=== PATIENT | female | born 1945 | race Caucasian/White ===

== ENCOUNTER 2017-01-16 10:02 | Inpatient (IN) | payer MEDICARE ==
[~2017-01-16] VITALS: Ht 170.2 cm; Wt 89.9 kg
[2017-01-16] MEDS ORDERED: DABI150C PO (10:34)
[2017-01-16] MEDS ORDERED: DRON400T PO (10:34)
[2017-01-16] MEDS ORDERED: HYDR12.53 PO (10:34)
[2017-01-16] MEDS ORDERED: ESTR0.5T3 PO (10:34)
[2017-01-16] MEDS ORDERED: SODIUM CHLORIDE 0.9% 1,000 ML IV ONE (11:10)
[2017-01-16 11:29] LABS: HEMOGLOBIN 16.9 g/dL (11.7-16.4)
[2017-01-16 11:41] LABS: ASPARTATE AMINO TRANSFERASE 14 U/L (15-37); BLOOD UREA NITROGEN 15 mg/dL (7-18)
[2017-01-16 11:47] LABS: IS PT STATUS REG ER OR PRE ER? YES
[2017-01-16] MEDS ORDERED: OMNIPAQUE 350 MG/ML, 100ML BOTTLE ONE (11:58)
[2017-01-16] MEDS ORDERED: ONDANSETRON 2MG/ML, 2ML IVP PRN (14:00)
[2017-01-16] MEDS ORDERED: ACETAMINOPHEN 325 MG TABLET PO PRN (14:00)
[2017-01-16] MEDS ORDERED: HYDROcodone/APAP 5/325 TABLET PO PRN (14:00)
[2017-01-16] MEDS ORDERED: MORPHINE SULFATE 4 MG/ML, 1ML IVPush PRN (14:00)
[2017-01-16] MEDS ORDERED: DOCUSATE 100 MG CAPSULE PO PRN (14:00)
[2017-01-16] MEDS ORDERED: POLYETHYLENE GLYCOL 17 GM PACKET PO PRN (14:00)
[2017-01-16] MEDS ORDERED: [UNRECOGNIZED DRUG - REMARK] MC SCH (14:30)
[2017-01-16 14:34] VITALS: BP 148/83
[2017-01-16] MEDS: SODIUM CHLORIDE 0.9% 1,000 ML IV SCH ×2 (15:26→23:06)
[2017-01-16] MEDS ORDERED: TEMAZEPAM 15 MG CAPSULE PO PRN (16:00)
[2017-01-16 19:44] VITALS: BP 128/74
[2017-01-16] MEDS: DABIGATRAN 150 MG CAPSULE PO SCH (20:31)
[2017-01-16] MEDS: DRONEDARONE 400MG TABLET PO SCH (20:31)
[2017-01-17 02:00] VITALS: BP 140/74
[2017-01-17 05:26] LABS: HEMOGLOBIN 13.9 g/dL (11.7-16.4)
[2017-01-17 05:37] LABS: BLOOD UREA NITROGEN 14 mg/dL (7-18)
[2017-01-17 08:24] VITALS: BP 162/80
[2017-01-17] MEDS ORDERED: HYDROCHLOROTHIAZIDE 12.5 MG CAPSULE PO SCH (09:00)
[2017-01-17] MEDS ORDERED: SENNA/DOCUSATE TABLET PO SCH (09:00)
[2017-01-17] MEDS ORDERED: HYDROXYUREA 500 MG CAPSULE PO SCH (09:00)
[2017-01-17] MEDS: DRONEDARONE 400MG TABLET PO SCH (09:03)
[2017-01-17] MEDS: DABIGATRAN 150 MG CAPSULE PO SCH (09:03)
[2017-01-17] MEDS ORDERED: HYDR500C3 PO (10:59)
[2017-01-20] MEDS ORDERED: ESTRADIOL 0.5 MG TABLET PO SCH (09:00)
[2017-01-22] MEDS ORDERED: ESTRADIOL 0.5 MG TABLET PO SCH (09:00)
== END 2017-01-17 13:28 | disposition home or self-care (01) | DRG 69 ==
LOC: ED 12:23 → EDIP 12:33 → 4EST 14:22
PROVIDERS: ADMIT Internal Medicine; ATTEND Family Medicine
PROC: 0T9B30Z Drainage of Bladder with Drainage Device, Percutaneous Approach (ICD-10-PCS; principal; 2017-01-16)
DX: G45.9 Transient cerebral ischemic attack, unspecified (principal); D68.59 Other primary thrombophilia; D75.89 Other specified diseases of blood and blood-forming organs; D45 Polycythemia vera; D47.3 Essential (hemorrhagic) thrombocythemia; E78.00 Pure hypercholesterolemia, unspecified; I10 Essential (primary) hypertension; E78.5 Hyperlipidemia, unspecified; I48.2 Chronic atrial fibrillation; Z80.9 Family history of malignant neoplasm, unspecified; Z82.49 Family history of ischemic heart disease and other diseases of the circulatory system; Z83.3 Family history of diabetes mellitus; Z90.49 Acquired absence of other specified parts of digestive tract; Z79.01 Long term (current) use of anticoagulants; Z90.710 Acquired absence of both cervix and uterus
CPT/HCPCS: 36415; 70450; 70496; 70498; 70551; 71010; 80047; 80048; 80053; 81003; 82962; 84484; 85025; 85610; 85730; 93005; 93306; 99195; 99291; Q9967; 92523-GN; J7030

== ENCOUNTER 2017-02-26 20:58 | Emergency (ER) | payer MEDICARE ==
[~2017-02-26] VITALS: Ht 170.2 cm; Wt 92.1 kg
[~2017-02-26 20:58] MED LIST: DABI150C PO; DRON400T PO; ESTR0.5T3 PO; HYDR12.53 PO; HYDR500C3 PO
[2017-02-26] MEDS ORDERED: SODIUM CHLORIDE 0.9% 1,000 ML IV ONE (21:21)
[2017-02-26] MEDS ORDERED: NITROGLYCERIN OINT 2%, 1GM TP ONE ×2 (21:30→22:27)
[2017-02-26] MEDS ORDERED: SODIUM CHLORIDE FLUSH 10ML SYR IVF ONE (21:30)
[2017-02-26] MEDS ORDERED: ASPIRIN 81 MG TABLET CHEW PO ONE (21:30)
[2017-02-26 22:04] LABS: ASPARTATE AMINO TRANSFERASE 14 U/L (15-37); BLOOD UREA NITROGEN 16 mg/dL (7-18)
[2017-02-26 22:09] LABS: IS PT STATUS REG ER OR PRE ER? YES
[2017-02-26] MEDS ORDERED: ASPIRIN 81 MG TABLET CHEW ONE (22:28)
[2017-02-26 23:53] VITALS: BP 135/70
== END 2017-02-26 23:55 | disposition left against medical advice (07) ==
LOC: ED 23:05 → SUATTDRO 23:12 → ED 23:55
DX: I16.9 Hypertensive crisis, unspecified (principal); R07.2 Precordial pain; I48.91 Unspecified atrial fibrillation; Z86.73 Personal history of transient ischemic attack (TIA), and cerebral infarction without residual deficits; Z86.2 Personal history of diseases of the blood and blood-forming organs and certain disorders involving the immune mechanism
CPT/HCPCS: 36415; 71010; 80053; 83880; 84484; 85025; 85610; 85730; 93005; 96360; 99285; J7030

== ENCOUNTER → 2017-12-01 | Outpatient (CLI) | payer MEDICARE | END | disposition home or self-care (01) | LOC: CFH 09:06 | PROVIDERS: ATTEND Nurse Practitioner Family | DX: Z12.31 Encounter for screening mammogram for malignant neoplasm of breast (principal) | CPT/HCPCS: 77063; 77067 ==

== ENCOUNTER 2019-01-10 17:16 | Inpatient (IN) | payer MEDICARE ==
[~2019-01-10] VITALS: Ht 170.2 cm; Wt 98.5 kg
[~2019-01-10 17:16] MED LIST changes: +HYDR12.517 PO; -HYDR12.53 PO
--- NOTE | 2019-01-10 18:06 | NUR ---
pt presents to ED with c/o generalized weakness x 5 days, states she was diagnosed with UTI 5 days ago and given keflex rx. pt has been compliant with this prescription. pt a&ox4, resps even and unlabored, neuro intact. 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 all monitors in place. call light in reach. ERP Ann at bedside to assess.
[2019-01-10 18:34] LABS: BASOPHILS # (AUTO) 0.03 x10^3/uL (0-0.1); BASOPHILS % (AUTO) 0 % (0-1); EOSINOPHILS % (AUTO) 0 % (1-7); LYMPHOCYTES % (AUTO) 7 % (22-44); MD NO; MEAN CORPUSCULAR HEMOGLOBIN 36.7 pg (27.0-34.8); MEAN CORPUSCULAR HGB CONC 35.1 g/dL (32.4-35.8); MEAN CORPUSCULAR VOLUME 104.3 fL (80-100); MEAN PLATELET VOLUME 6.5 fL (7.4-10.4); MONOCYTES # (AUTO) 0.61 x10^3/uL (0.2-0.8); MONOCYTES % (AUTO) 5 % (2-9); NEUTROPHILS # (AUTO) 11.09 x10^3/uL (1.8-6.8); NEUTROPHILS % (AUTO) 88 % (42-75); PLATELET COUNT 545 x10^3/uL (130-400); RED BLOOD COUNT 4.29 x10^6/uL (3.82-5.3); RED CELL DISTRIBUTION WIDTH 13.3 % (9.6-15.2)
[2019-01-10 18:40] LABS: INTERNATIONAL NORMALIZED RATIO 1.22 (0.93-1.1); PROTHROMBIN TIME 12.7 Seconds (9.6-11.5)
[2019-01-10 18:42] LABS: ALANINE AMINOTRANSFERASE 29 U/L (12-78); ANION GAP 11 mmol/L (5-15); CALCIUM 8.7 mg/dL (8.5-10.1); CHLORIDE 79 mmol/L (98-107); CREATININE 0.78 mg/dL (0.55-1.02)
[2019-01-10 18:46] LABS: ALKALINE PHOSPHATASE 67 U/L (45-117); BILIRUBIN,TOTAL 1.5 mg/dL (0.2-1.0); TOTAL PROTEIN 7.3 g/dL (6.4-8.2); TROPONIN I < 0.015 ng/mL (0.000-0.045)
[2019-01-10 18:46] LABS: CULTURE INDICATED? YES; MICROSCOPIC INDICATED
[2019-01-10] MEDS ORDERED: SODIUM CHLORIDE 0.9% 1,000 ML IV ONE (18:57)
--- NOTE | 2019-01-10 19:06 | NUR ---
ERP Grausz aware NA level 114, pt to have IV and NS infusion.
--- NOTE | 2019-01-10 19:15 | NUR ---
report given to camcaho Corcoran.
--- NOTE | 2019-01-10 19:34 | NUR ---
Break RN: IV placed. IVF jerri. Hospitalist ( Dr. Kim ) at bedside.
[2019-01-10] MEDS ORDERED: METO25TA91 PO (19:53)
[2019-01-10] MEDS ORDERED: METO-282 PO (19:53)
[2019-01-10] MEDS ORDERED: CEPH-368 PO (19:53)
[2019-01-10] MEDS ORDERED: TRIA1TAB3 PO (19:53)
--- NOTE | 2019-01-10 19:58 | NUR ---
report received from ARIELLE Corcoran. this RN assuming care again.
[2019-01-10] MEDS ORDERED: HEPARIN 5,000 UNITS/ML, 1ML SQ SCH (20:00)
[2019-01-10] MEDS ORDERED: ONDANSETRON 2MG/ML, 2ML IVPush PRN (20:00)
[2019-01-10] MEDS ORDERED: SODIUM CHLORIDE 3% 500 ML IV PRN (20:00)
[2019-01-10] MEDS ORDERED: LABETALOL 5MG/ML, 20ML IVPush PRN (20:00)
[2019-01-10] MEDS ORDERED: ACETAMINOPHEN 325 MG TABLET PO PRN (20:00)
--- NOTE | 2019-01-10 20:15 | NUR ---
order received for IV rocephin, hospitalist called to see if blood cx are indicated prior to infusion. no answer, no message service available. this RN will attempt to call again shortly.
--- NOTE | 2019-01-10 20:17 | NUR ---
MD Kim reached, per MD, no blood cx indicated prior to IV abx as pt has been on outpatient anbiotic therapy for past several days.
[2019-01-10] MEDS ORDERED: CEFTRIAXONE PMX 1GM/50ML 50 ML ONE (20:20)
[2019-01-10 20:28] LABS: ANION GAP 11 mmol/L (5-15); CALCIUM 8.8 mg/dL (8.5-10.1); CHLORIDE 80 mmol/L (98-107); CREATININE 0.69 mg/dL (0.55-1.02)
[2019-01-10] MEDS: CEFTRIAXONE PMX 1GM/50ML 50 ML IV SCH (20:28)
--- NOTE | 2019-01-10 20:40 | NUR ---
NS infusion of 75ml/hr started by ARIELLE Corcoran stopped. Hypertonic saline infusion at 40mL/hr initiated per pharmacy, per pharmacy, this may be infused through a peripheral IV. Infusion infusing via pump, rate and dose verified by second RN Mayela. Pt is a&ox 4, neuro intact. 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 pupils equal, round and reactive. second PIV placed by this RN for hypertonic saline infusion. pt tolerating well. nsr on monitor technician, no ectopy, vss.
--- NOTE | 2019-01-10 20:46 | NUR ---
report given to ARIELLE Camacho, pt awaiting transport to room 551.
--- NOTE | 2019-01-10 21:02 | NUR ---
pt transported by this RN and tech to CCU. nadn at transport. MD Kim notified repeat Na level is 115.
[2019-01-10 21:04] VITALS: BP 146/76
[2019-01-10] MEDS: METOPROLOL SUCCINATE 25 MG TAB.ER.24H PO SCH (22:01)
[2019-01-10] MEDS: DABIGATRAN 150 MG CAPSULE PO SCH (22:01)
[2019-01-10] MEDS: DRONEDARONE 400MG TABLET PO SCH (22:01)
[2019-01-10] MEDS ORDERED: HYDROXYUREA 500 MG CAPSULE PO ONE (22:30)
[2019-01-11 00:56] LABS: ANION GAP 10 mmol/L (5-15); CALCIUM 8.4 mg/dL (8.5-10.1); CHLORIDE 82 mmol/L (98-107); CREATININE 0.66 mg/dL (0.55-1.02)
[2019-01-11 04:30] VITALS: BP 142/60
[2019-01-11 04:33] LABS: BASOPHILS # (AUTO) 0.01 x10^3/uL (0-0.1); BASOPHILS % (AUTO) 0 % (0-1); EOSINOPHILS % (AUTO) 0 % (1-7); LYMPHOCYTES # (AUTO) 1.55 x10^3/uL (1-3.4); LYMPHOCYTES % (AUTO) 14 % (22-44); MD NO; MEAN CORPUSCULAR HEMOGLOBIN 36.5 pg (27.0-34.8); MEAN CORPUSCULAR VOLUME 104.3 fL (80-100); MEAN PLATELET VOLUME 6.5 fL (7.4-10.4); MONOCYTES # (AUTO) 0.79 x10^3/uL (0.2-0.8); MONOCYTES % (AUTO) 7 % (2-9); NEUTROPHILS # (AUTO) 8.69 x10^3/uL (1.8-6.8); NEUTROPHILS % (AUTO) 79 % (42-75); PLATELET COUNT 484 x10^3/uL (130-400); RED BLOOD COUNT 4.13 x10^6/uL (3.82-5.3); RED CELL DISTRIBUTION WIDTH 13.3 % (9.6-15.2)
[2019-01-11 05:27] LABS: ANION GAP 8 mmol/L (5-15); CALCIUM 8.4 mg/dL (8.5-10.1); CHLORIDE 87 mmol/L (98-107); CREATININE 0.68 mg/dL (0.55-1.02)
[2019-01-11] MEDS ORDERED: SODIUM CHLORIDE 3% 500 ML IV PRN (06:00)
[2019-01-11] MEDS: NS + 20MEQ KCL 1,000 ML IV SCH ×2 (08:18→17:39)
[2019-01-11] MEDS: DABIGATRAN 150 MG CAPSULE PO SCH ×2 (08:24→20:36)
[2019-01-11] MEDS: METOPROLOL SUCCINATE 25 MG TAB.ER.24H PO SCH ×2 (08:31→20:33)
[2019-01-11] MEDS ORDERED: HYDROXYUREA 500 MG CAPSULE PO SCH (09:00)
[2019-01-11 09:58] LABS: ANION GAP 9 mmol/L (5-15); CALCIUM 8.4 mg/dL (8.5-10.1); CHLORIDE 87 mmol/L (98-107); CREATININE 0.74 mg/dL (0.55-1.02)
[2019-01-11] MEDS: DRONEDARONE 400MG TABLET PO SCH ×2 (10:20→20:33)
[2019-01-11 12:40] LABS: ANION GAP 8 mmol/L (5-15); CALCIUM 8.6 mg/dL (8.5-10.1); CHLORIDE 89 mmol/L (98-107); CREATININE 0.72 mg/dL (0.55-1.02)
[2019-01-11 16:18] LABS: ANION GAP 6 mmol/L (5-15); CALCIUM 8.2 mg/dL (8.5-10.1); CHLORIDE 92 mmol/L (98-107); CREATININE 0.63 mg/dL (0.55-1.02)
[2019-01-11 20:20] LABS: ANION GAP 8 mmol/L (5-15); CHLORIDE 94 mmol/L (98-107); CREATININE 0.65 mg/dL (0.55-1.02)
[2019-01-11] MEDS: CEFTRIAXONE PMX 1GM/50ML 50 ML IV SCH (20:32)
[2019-01-12 00:45] LABS: ANION GAP 9 mmol/L (5-15); CALCIUM 7.9 mg/dL (8.5-10.1); CHLORIDE 96 mmol/L (98-107); CREATININE 0.55 mg/dL (0.55-1.02)
[2019-01-12] MEDS: NS + 20MEQ KCL 1,000 ML IV SCH (02:28)
[2019-01-12 04:00] VITALS: BP 146/62
[2019-01-12 04:56] LABS: ANION GAP 6 mmol/L (5-15); CALCIUM 8.3 mg/dL (8.5-10.1); CHLORIDE 100 mmol/L (98-107); CREATININE 0.58 mg/dL (0.55-1.02)
[2019-01-12 08:46] LABS: ANION GAP 7 mmol/L (5-15); CALCIUM 8.4 mg/dL (8.5-10.1); CHLORIDE 101 mmol/L (98-107); CREATININE 0.56 mg/dL (0.55-1.02)
[2019-01-12] MEDS ORDERED: HYDROXYUREA 500 MG CAPSULE PO SCH (09:00)
[2019-01-12] MEDS: METOPROLOL SUCCINATE 25 MG TAB.ER.24H PO SCH (09:20)
[2019-01-12] MEDS: DABIGATRAN 150 MG CAPSULE PO SCH (09:21)
[2019-01-12] MEDS ORDERED: LISI-167 PO (09:24)
[2019-01-12] MEDS: DRONEDARONE 400MG TABLET PO SCH (09:25)
== END 2019-01-12 11:20 | disposition home or self-care (01) | DRG 640 ==
LOC: ED 18:47 → EDIP 19:46 → CCU 20:53 → ICU 01-11 06:09 → DCLOUNGE 01-12 11:05
PROVIDERS: ADMIT Family Medicine; ATTEND Family Medicine
PROC: 5A09357 Assistance with Respiratory Ventilation, Less than 24 Consecutive Hours, Continuous Positive Airway Pressure (ICD-10-PCS; principal; 2019-01-11)
DX: E87.1 Hypo-osmolality and hyponatremia (principal); G93.41 Metabolic encephalopathy; D68.69 Other thrombophilia; N39.0 Urinary tract infection, site not specified; T50.2X5A Adverse effect of carbonic-anhydrase inhibitors, benzothiadiazides and other diuretics, initial encounter; D45 Polycythemia vera; G47.33 Obstructive sleep apnea (adult) (pediatric); K21.9 Gastro-esophageal reflux disease without esophagitis; E86.0 Dehydration; I10 Essential (primary) hypertension; I48.91 Unspecified atrial fibrillation; Z79.01 Long term (current) use of anticoagulants; Z86.73 Personal history of transient ischemic attack (TIA), and cerebral infarction without residual deficits; Z90.710 Acquired absence of both cervix and uterus; Z90.49 Acquired absence of other specified parts of digestive tract; Y92.89 Other specified places as the place of occurrence of the external cause
CPT/HCPCS: 36415; 80048; 80053; 81001; 84484; 85025; 85610; 85730; 87081; 87086; 93005; 99291; G0378; J0696; J3480; J7030

== ENCOUNTER → 2021-05-02 | Outpatient (CLI) | payer MEDICARE ==
[~2021-05-02] MED LIST changes: +CEPH-368 PO; -DRON400T PO; +DRON400T6 PO; +LISI-167 PO; +METO-282 PO; +METO25TA91 PO; +TRIA1TAB3 PO
== END | disposition home or self-care (01) ==
LOC: CFH 12:48
PROVIDERS: ATTEND Nurse Practitioner Family
DX: N64.4 Mastodynia (principal)
CPT/HCPCS: 77062; 77066; G0279